=== PATIENT | female | born 1930 | race Caucasian/White ===

== ENCOUNTER 2018-11-05 17:46 | Emergency (ER) | payer MEDICARE, OTHER ==
[~2018-11-05] VITALS: Ht 152.4 cm; Wt 43.5 kg
[~2018-11-05 17:46] MED LIST: DONE10TA7 PO; LEVO50TA PO; LOSA1TAB19 PO; MEMA10TA PO; RISP0.2519 PO; TRAZ-118 PO
--- NOTE | 2018-11-05 19:26 | PHYS DOC ---
Past Medical History Past Medical History: Dementia, Diabetes-Type II, Stroke Past Surgical History: Other Additional Past Surgical Histo: UNKNOWN Alcohol Use: None Drug Use: None Adult General Chief Complaint Chief Complaint: ALTERED MENTAL STATUS HPI HPI She is an 88-year-old female patient that's on hospice with [facility]. Apparently tonight she had a spell where she may have passed out and foamed at the mouth. Patient is unable to provide any history. The patient has been on hospice for quite some time. The family states the only reason they brought her as they couldn't get a hold of the hospice nurse and time.[] Review of Systems Review of Systems Review of systems is unobtainable secondary to altered mental status. Allergies Allergies Allergies Coded Allergies Type Severity Reaction Last Updated Verified No Known Drug Allergies 01/30/15 No Physical Exam Physical Exam Constitutional: Frail acute on chronically ill. [] HENT: Scleral icterus. []. [] Neck: Normal range of motion, no tenderness, supple, no stridor. [] Cardiovascular:Heart rate regular rhythm, no murmur [] Lungs & Thorax: Bilateral breath sounds clear to auscultation [] Abdomen: Bowel sounds normal, soft, no tenderness, no masses, no pulsatile masses. [] Skin: Warm, dry, no erythema, no rash. [] Back: No tenderness, no CVA tenderness. [] Extremities: No tenderness, no cyanosis, no clubbing, ROM intact, no edema. [] Neurologic: Patient is obtunded[] Current Patient Data Vital Signs Vital Signs Date Time Temp Pulse Resp B/P (MAP) Pulse Ox O2 Delivery O2 Flow Rate FiO2 11/05/18 17:50 97.5 66 16 152/82 (105) 96 Room Air 97.5 EKG EKG [] Radiology/Procedures Radiology/Procedures [] Course & Med Decision Making Course & Med Decision Making Pertinent Labs and Imaging studies reviewed. (See chart for details) [ED course: Evaluation reveals a hospice patient who is obviously the very end of her life. Her hospice nurse did show up talked to the family and the decision was made not to do any further testing and to send the patient home. I wholeheartedly agree with this decision.] Dragon Disclaimer Dragon Disclaimer This electronic medical record was generated, in whole or in part, using a voice recognition dictation system. Departure Departure Impression: Primary Impression: Metabolic encephalopathy Disposition: HOME, SELF-CARE Condition: CRITICAL Referrals: NADINE ALEMAN MD (PCP) Patient Instructions: Hospice Care Scripts No Active Prescriptions or Reported Meds TAMI BHANDARI DO Nov 05, 2018 19:26
[2018-11-05 20:00] VITALS: BP 127/82
== END 2018-11-05 20:03 | disposition home or self-care (01) ==
LOC: ER 17:46
DX: G93.41 Metabolic encephalopathy (principal); R41.82 Altered mental status, unspecified; E11.9 Type 2 diabetes mellitus without complications; Z86.73 Personal history of transient ischemic attack (TIA), and cerebral infarction without residual deficits
CPT/HCPCS: 99283